=== PATIENT | female | born 1980 | race Two or more races ===

== ENCOUNTER 2024-07-01 22:21 | Emergency (ER) | payer MEDICAID ==
[~2024-07-01] VITALS: Ht 165.1 cm; Wt 71.0 kg
[2024-07-01 22:23] VITALS: BP 134/78; PULSE 95; RESP 18; TEMP 36.7; O2SAT 99
[2024-07-02 00:30] VITALS: TEMP 97.8
[2024-07-02] MEDS: ACETAMINOPHEN 500MG TABLET PO ONE (00:30)
[2024-07-02] MEDS ORDERED: LIDO700A15 TP (02:46)
[2024-07-02] MEDS ORDERED: NAPR-1176 MT (02:46)
== END 2024-07-02 04:00 | disposition home or self-care (01) ==
LOC: ER 22:21
DX: M54.2 Cervicalgia (principal); R51.9 Headache, unspecified; M25.552 Pain in left hip; Z79.1 Long term (current) use of non-steroidal anti-inflammatories (NSAID); Z79.899 Other long term (current) drug therapy
CPT/HCPCS: 73502; 99284

== ENCOUNTER 2024-07-02 05:03 | Emergency (ER) | payer MEDICAID ==
[~2024-07-02] VITALS: Ht 165.1 cm; Wt 71.0 kg
[~2024-07-02 05:03] MED LIST: LIDO700A15 TP; NAPR-1176 MT
[2024-07-02 05:09] VITALS: BP 128/71; TEMP 36.8; O2SAT 98
[2024-07-02 05:19] VITALS: PULSE 82; RESP 20; O2SAT 100
== END 2024-07-02 07:41 | disposition home or self-care (01) ==
LOC: ER 05:03
DX: M25.552 Pain in left hip (principal); Z79.1 Long term (current) use of non-steroidal anti-inflammatories (NSAID); Z79.899 Other long term (current) drug therapy
CPT/HCPCS: 99281